=== PATIENT | female | born 1965 | race Caucasian/White ===

== ENCOUNTER 2021-08-12 19:03 | Emergency (ER) | payer OTHER ==
[~2021-08-12] VITALS: Ht 160 cm; Wt 79.4 kg
--- NOTE | 2021-08-12 19:15 | NUR ---
Patient to ER Hallway [facility] to [facility] for evaluation. Side rails up.
[2021-08-12 19:33] VITALS: BP_SYST 141
--- NOTE | 2021-08-12 19:51 | NUR ---
Pt taken to Radiology in stable condition
--- NOTE | 2021-08-12 20:05 | NUR ---
Pt BIB family to ED C/O L Upper Chest pain radiating to upper back, No Hx VSS no s/s of acute distress Resting on gurney rails up
[2021-08-12 20:33] LABS: BASOPHILS % (AUTO) 0.6 % (0.0-2.0); EOSINOPHILS # (AUTO) 0.2 K/uL (0.0-0.4); EOSINOPHILS % (AUTO) 2.6 % (0.0-4.0); HEMATOCRIT 37.9 % (36-48); HEMOGLOBIN 12.8 g/dL (12.0-16.0); LYMPHOCYTES # (AUTO) 2.3 K/uL (1.0-5.5); LYMPHOCYTES % (AUTO) 38.8 % (20.5-51.5); MEAN CORPUSCULAR HEMOGLOBIN 30 pg (27-31); MEAN CORPUSCULAR HGB CONC 34 % (32-36); MEAN CORPUSCULAR VOLUME 88 fL (79.0-98.0); MONOCYTES # (AUTO) 0.7 K/uL (0.0-1.0); MONOCYTES % (AUTO) 11.1 % (1.7-9.3); NEUTROPHILS # (AUTO) 2.8 K/uL (1.8-7.7); NEUTROPHILS % (AUTO) 46.9 % (40.0-70.0); PLATELET COUNT (AUTO) 228 K/uL (130-430); RED CELL DISTRIBUTION WIDTH 13.3 % (9.0-15.0); WHITE BLOOD COUNT (AUTO) 5.9 K/uL (4.8-10.8)
--- NOTE | 2021-08-12 20:37 | NUR ---
Dr. Palencia bedside for pt eval
[2021-08-12 20:43] LABS: ANION GAP 7 (5-15); CALCIUM 8.7 mg/dL (8.4-11.0); CHLORIDE 106 mmol/L (98-107); CREATININE 0.61 mg/dL (0.55-1.30); GLUCOSE 92 mg/dL (70-99); POTASSIUM 3.6 mmol/L (3.5-5.1); SODIUM SERUM 142 mmol/L (136-145); UREA NITROGEN, BLOOD 13 mg/dL (8-21)
[2021-08-12 20:52] LABS: ALANINE AMINOTRANSFERASE 28 U/L (12-78); ALBUMIN 3.4 g/dL (3.4-4.8); ASPARTATE AMINOTRANSFERASE 19 U/L (10-37); TOTAL BILIRUBIN 0.3 mg/dL (0.0-1.0)
[2021-08-12 21:00] LABS: GFR AFRICAN AMERICAN 130 mL/min (>90)
[2021-08-12] MEDS ORDERED: ACETAMINOPHEN 500 MG TABLET PO ONE (21:00)
[2021-08-12] MEDS ORDERED: ONDANSETRON HCL 4 MG/2 ML VIAL IVP ONE (21:00)
[2021-08-12] MEDS ORDERED: MORPHINE 2 MG/ML INJ. SYRINGE IVP ONE (21:00)
--- NOTE | 2021-08-12 21:45 | NUR ---
Pt verbalized feeling a little better post IV meds, well tolerated
--- NOTE | 2021-08-12 22:55 | NUR ---
VSS no s/s of acute distress Resting on gurney rails up
[2021-08-12] MEDS ORDERED: ACET-2634 PO (22:59)
[2021-08-12 23:30] VITALS: BP_SYST 120
--- NOTE | 2021-08-12 23:30 | NUR ---
Patient given written and verbal discharge instructions and verbalizes understanding. ER MD discussed with patient the results and treatment provided. Patient in stable condition. ID arm band removed. IV catheter removed intact and dressing applied, no active bleeding. Rx of Tylenol given. Patient educated on pain management and to follow up with PMD. Pain Scale 0/10 Opportunity for questions provided and answered. Medication side effect fact sheet provided.
== END 2021-08-12 23:30 | disposition home or self-care (01) ==
LOC: SED 19:03
DX: R07.89 Other chest pain (principal); M62.838 Other muscle spasm
CPT/HCPCS: 36415; 71045; 80053; 83880; 84484; 85025; 85379; 93005; 96374; 96375; 99285; J2270; J2405

== ENCOUNTER 2022-04-21 15:32 | Emergency (ER) | payer OTHER ==
[~2022-04-21] VITALS: Ht 160 cm; Wt 80.3 kg
[~2022-04-21 15:32] MED LIST: ACET-2634 PO
--- NOTE | 2022-04-21 15:32 | NUR ---
Patient triaged and placed in waiting room. VSS and patient appears in no acute distress at this time. Accompanied by SELF, awaiting available bed, and MD notified of need for MSE.
[2022-04-21 15:35] VITALS: BP_SYST 114
--- NOTE | 2022-04-21 15:40 | NUR ---
PT STATES RASH TO GEN BODY AND TINGLING, NO RASH NOTED.
--- NOTE | 2022-04-21 16:01 | NUR ---
DR COTTO OUT TO TRIAGE ROOM FOR EVALUATION
[2022-04-21] MEDS ORDERED: CETI10CA PO (16:23)
--- NOTE | 2022-04-21 16:30 | NUR ---
Patient given written and verbal discharge instructions and verbalizes understanding. ER MD discussed with patient the results and treatment provided. Patient in stable condition. ID arm band removed Rx of ZYRTEC given. Patient educated on pain management and to follow up with PMD. Pain Scale 0/10. Opportunity for questions provided and answered. Medication side effect fact sheet provided.
== END 2022-04-21 16:40 | disposition home or self-care (01) ==
LOC: SED 15:32
DX: R21 Rash and other nonspecific skin eruption (principal); Z79.899 Other long term (current) drug therapy
CPT/HCPCS: 99282